=== PATIENT | male | born 2000 | race Two or more races ===

== ENCOUNTER 2023-01-13 09:08 | Emergency (ER) | payer SELFPAY ==
[~2023-01-13] VITALS: Ht 162.6 cm; Wt 52.7 kg
[2023-01-13 09:19] VITALS: BP 118/78
[2023-01-13] MEDS ORDERED: cefTRIAXone SOD 1,000 MG VL IM ONE (10:30)
[2023-01-13] MEDS ORDERED: IBUP600T27 PO (10:57)
[2023-01-13] MEDS ORDERED: AZIT250T8 PO (10:57)
== END 2023-01-13 11:06 | disposition home or self-care (01) ==
LOC: ER 09:08
DX: J03.90 Acute tonsillitis, unspecified (principal)
CPT/HCPCS: 96372; 99283; J0696